=== PATIENT | male | born 1950 | race Caucasian/White ===

== ENCOUNTER 2024-03-02 13:50 | Outpatient (CLI) | payer MEDICARE, SELFPAY ==
--- NOTE | ~2024-03-02 | XR_ITS ---
Right Knee Technique: AP and lateral views were obtained. Clinical History: Pain Findings: No fracture or dislocation is seen. There is medial compartment narrowing with medial joint line osteophyte formation. Lateral patellofemoral compartments are intact. Soft tissues are unremark able. No joint effusion is seen. Impression: Advanced medial compartment degenerative change. Reviewed, dictated and finalized at location . Impression: Advanced medial compartment degenerative change.
--- NOTE | ~2024-03-02 | XR_ITS ---
Left Knee Technique: AP and lateral views were obtained. Clinical History: Pain Findings: No fracture or dislocation is seen. There is medial compartment narrowing with medial joint line osteophyte formation. There is minimal spurring of the lateral and patellofemoral compartments. Soft tissues are unremarkable. No joint effusion is seen. Impression: Advanced degenerative change of the medial compartment. Mild degenerative change of the lateral and p atellofemoral compartment. Reviewed, dictated and finalized at location M. Impression: Advanced degenerative change of the medial compartment. Mild degenerative richardson e of the lateral and patellofemoral compartment.
== END 2024-03-02 13:51 | disposition home or self-care (01) ==
PROVIDERS: PCP Nurse Practitioner Family; Visit Provider Nurse Practitioner Family
DX: M17.0 Bilateral primary osteoarthritis of knee (principal)
CPT/HCPCS: 73560

== ENCOUNTER 2025-01-16 11:42 | Emergency (ER) | payer MEDICARE, SELFPAY ==
--- OUTSIDE RECORDS SUMMARY | 2024-06-03 07:00 | XMS_ITS ---
Author Organization [facility] Address [address] [place] [address] Care Team Providers Care Auction Block Clerk Name Role Phone Julian Valencia Unavailable [phone] Medications Medication SIG (Take, Route, Frequency, Duration) Notes Start Date End Date Status Furosemide 40 MG TAKE 1 TABLET BY LUKE TH EVERY DAY; Duration: 90 Active Flomax 0.4 MG 1 capsule Orally Onc e a day; Duration: 90 day(s) 03/25/2024 12/20/2024 Active Calcitriol 0.25 MCG TAKE 1 CAPSULE BY MO UTH EVERY DAY FOR 90 DAYS; Duration: 90 Active Lasix 40 MG 1 tablet Orally twic e a day; Duration: 90 day(s) 04/03/2023 Active Tamsulosin HCl 0.4 MG TAKE 1 CAPSULE BY MOUTH EVERY DAY FOR 90 DAYS; Duration: 90 Active Vitamin D (Ergocalciferol) 1.25 MG (18108 UT) TAKE 1 CAPSULE BY MOUTH TWICE A WEEK; Duration: 90 Active Encounters Encounter Location Date Provider Diagnosis [place] [facility] 2043 [facility] 15 [place] [address] 06/03/2024 Julian Valencia Chronic kidney disea se, stage 2 (mild) N18.2 ; Essential (primary) hypertension I10 ; Renal osteodystrophy N25.0 ; Secondary hyperparathyroidism, not elsewhere classified E21.1 ; Lymphedema, not elsewhere classified I89.0 ; Hypothyroidism, unspecified E03.9 and Proteinuria, unspecified R80.9 Assessments Encounter Date Diagnosis (ICD Code) Assessment Notes Treatment Notes Treatment Clinical Notes Section Notes 06/03/2024 Chronic kidney disease, stage 2 (mild) (ICD-10 - N18.2) 06/03/2024 Essential (primary) hypertension (ICD-10 - I10) 06/03/2024 Renal osteodystrophy (ICD-10 - N25.0) 06/03/2024 Secondary hyperparathyroidism , not elsewhere classified (ICD-10 - E21.1) 06/03/2024 Lymphedema, not elsewhere classified (ICD-10 - I89.0) 06/03/2024 Hypothyroidism, unspecified (ICD-10 - E03.9) 06/03/2024 Proteinuria, unspecified (ICD-10 - R80.9) Plan Of Treatment Next Appt Details Provider Name:Julian Erik , 02/17/2025 02:00:00 PM, 2043 [facility] 15, [place], [address], Progress Notes * MARY DACOSTADOB:1950 (74 yo M)Acc No.[id number]:06/03/2024 Progress Notes Patient: MARY ORTIZ Provider: Oseas ALDRIDGE MD, F.A.C.P, F.A.S.N. :1950 A ge:73 Y S ex:Male Date:06/03/2024 Address:[address] [place] [address] Subjective: * Chief Complaints: * * Medical History: * Medications: T aking Vitamin D (Ergocalciferol) 1.25 MG (68110 UT) Capsule TAKE 1 CAPSULE BY MOUTH TWICE A WEEK , Taking Lasix 40 MG Tablet 1 tablet Orally twice a day , Taking Tamsulosin HCl 0.4 MG Capsule TAKE 1 CAPSULE BY MOUTH EVERY DAY FOR 90 DAYS , Taking Flomax 0.4 MG Capsule 1 capsule Orally Once a day , stop date 12/20/2024, Taking Calcitriol 0.25 MCG Capsule TAKE 1 CAPSULE BY MOUTH EVERY DAY FOR 90 DAYS , Taking Furosemide 40 MG Tablet TAKE 1 TABLET BY MOUTH EVERY DAY Objective: * Vitals: Assessment: * Assessment: 1. C hronic kidney disease, stage 2 (mild) - N18.2 (Primary) 2 . E ssential (primary) hypertension - I10 3 . R enal osteodystrophy - N25.0 4 . S econdary hyperparathyroidism, not elsewhere classified - E21.1 5 . L ymphedema, not elsewhere classified - I89.0 6 . H ypothyroidism, unspecified - E03.9 7 . P roteinuria, unspecified - R80.9 Plan: * Treatment: * Billing Information: * Visit Code: 48527 Office Visit, Est Pt., Level 4. * Procedure Codes: * Electronic signature of Zain Valencia MD on 01/16/2025 at 11:45 AM CDT Sign off status: Pending * Provider: sOeas ALDRIDGE MD, F.A.C.P, F.A.S.N. Date: 0 06/03/2024 Generated for Printing/Faxing/eTransmitting on: 0 01/16/2025 11:45 AM CDT
--- OUTSIDE RECORDS SUMMARY | 2024-07-29 08:30 | XMS_ITS ---
Author Organization [facility] Address [address] [facility] 61 [facility] [address] [place] [address] Care Team Providers Care Metal Bonding Assembler Name Role Phone Erik Julian Unavailable [phone] Problems Problem Type SNOMED Code ICD Code Onset Dates Problem Status W/U Status Risk Notes Problem Edema (05938433) Edema, unspecified (R60.9) Active confirmed Encounters Encounter Location Date Provider Diagnosis [place] [facility] 2043 [facility] 15 [place] [address] 07/29/2024 Julian Valencia Chronic kidney disea se, stage 2 (mild) N18.2 ; Essential (primary) hypertension I10 ; Hypothyroidism, unspecified E03.9 ; Hyperlipidemia, unspecified E78.5 ; Secondary hyperparathyroidism, not elsewhere classified E21.1 ; Renal osteodystrophy N25.0 ; Obesity, unspecified E66.9 ; Lymphedema, not elsewhere classified I89.0 and Edema, unspecified R60.9 Assessments Encounter Date Diagnosis (ICD Code) Assessment Notes Treatment Notes Treatment Clinical Notes Section Notes 07/29/2024 Chronic kidney disease, stage 2 (mild) (ICD-10 - N18.2) 07/29/2024 Essential (primary) hypertension (ICD-10 - I10) 07/29/2024 Hypothyroidism, unspecified (ICD-10 - E03.9) 07/29/2024 Hyperlipidemia, unspecified (ICD-10 - E78.5) 07/29/2024 Secondary hyperparathyroidism , not elsewhere classified (ICD-10 - E21.1) 07/29/2024 Renal osteodystrophy (ICD-10 - N25.0) 07/29/2024 Obesity, unspecified (ICD-10 - E66.9) 07/29/2024 Lymphedema, not elsewhere classified (ICD-10 - I89.0) 07/29/2024 Edema, unspecified (ICD-10 - R60.9) Plan Of Treatment Next Appt Details Provider Name:Julian Erik , 02/17/2025 02:00:00 PM, 2043 [facility], [address], [place], [address], Progress Notes * MARY DACOSTADOB:1950 (74 yo M)Acc No.[id number]:07/29/2024 Progress Notes Patient: MARY ORTIZ Provider: Oseas ALDRIDGE MD, F.A.C.P, F.A.S.N. :1950 A ge:73 Y S ex:Male Date:07/29/2024 Address:[facility] [place] [address] Subjective: * Chief Complaints: * * Medical History: Objective: * Vitals: Assessment: * Assessment: 1. C hronic kidney disease, stage 2 (mild) - N18.2 (Primary) 2 . E ssential (primary) hypertension - I10 3 . H ypothyroidism, unspecified - E03.9 ? 4 . H yperlipidemia, unspecified - E78.5 5 . S econdary hyperparathyroidism, not elsewhere classified - E21.1 6 . R enal osteodystrophy - N25.0 ? 7 . O besity, unspecified - E66.9 8 . L ymphedema, not elsewhere classified - I89.0 9 . E lorrie, unspecified - R60.9 Plan: * Treatment: * Billing Information: * Visit Code: 39355 Office Visit, Est Pt., Level 4. * Procedure Codes: * Electronic signature of Zain Valencia MD on 01/16/2025 at 11:44 AM CDT Sign off status: Pending * Provider: Oseas ALDRIDGE MD, F.A.C.P, F.A.S.N. Date: 0 07/29/2024 Generated for Printing/Faxing/eTransmitting on: 0 01/16/2025 11:44 AM CDT
--- OUTSIDE RECORDS SUMMARY | 2024-11-04 08:15 | XMS_ITS ---
Author Organization [facility] Address 1400 [facility] 61 [facility] [address] [place] [address] Care Team Providers Care Marketing Copywriter Name Role Phone Julian Valencia Unavailable [phone] Encounters Encounter Location Date Provider Diagnosis [place] [facility] 2043 [facility] 15 [place] [address] 11/04/2024 Julian Valencia Chronic kidney disea se, stage 2 (mild) N18.2 ; Essential (primary) hypertension I10 ; Hypothyroidism, unspecified E03.9 ; Hyperlipidemia, unspecified E78.5 ; Secondary hyperparathyroidism, not elsewhere classified E21.1 ; Renal osteodystrophy N25.0 ; Obesity, unspecified E66.9 ; Lymphedema, not elsewhere classified I89.0 and Edema, unspecified R60.9 Assessments Encounter Date Diagnosis (ICD Code) Assessment Notes Treatment Notes Treatment Clinical Notes Section Notes 11/04/2024 Chronic kidney disease, stage 2 (mild) (ICD-10 - N18.2) 11/04/2024 Essential (primary) hypertension (ICD-10 - I10) 11/04/2024 Hypothyroidism, unspecified (ICD-10 - E03.9) 11/04/2024 Hyperlipidemia, unspecified (ICD-10 - E78.5) 11/04/2024 Secondary hyperparathyroidism , not elsewhere classified (ICD-10 - E21.1) 11/04/2024 Renal osteodystrophy (ICD-10 - N25.0) 11/04/2024 Obesity, unspecified (ICD-10 - E66.9) 11/04/2024 Lymphedema, not elsewhere classified (ICD-10 - I89.0) 11/04/2024 Edema, unspecified (ICD-10 - R60.9) Plan Of Treatment Next Appt Details Provider Name:Julian Valencia , 02/17/2025 02:00:00 PM, 2043 [facility], [address], [place], [address], Progress Notes * MARY DACOSTADOB:1950 (74 yo M)Acc No.[id number]:11/04/2024 Progress Notes Patient: MARY ORTIZ Provider: Oseas ALDRIDGE MD, F.Pedro.C.P, F.A.S.N. :1950 A ge:73 Y S ex:Male Date:11/04/2024 Address:[address] [place] [address] [place] [place] Subjective: * Chief Complaints: * * Medical [...] Treatment: * Billing Information: * Visit Code: 82250 Office Visit, Est Pt., Level 4. * Procedure Codes: * Electronic signature of Zain Valencia MD on 01/16/2025 at 11:44 AM CDT Sign off status: Pending * Provider: Oseas ALDRIDGE MD, Soy.Pedro.C.P, F.A.S.N. Date: 11/04/2024 Generated for Printing/Faxing/eTransmitting on: 01/16/2025 11:44 AM CDT
--- OUTSIDE RECORDS SUMMARY | 2024-12-23 09:30 | XMS_ITS ---
Author Organization [facility] Address [address] [facility] 61 [facility] [address] [place] [address] Care Team Providers Care Monkey Trainer Name Role Phone Julian Valencia Unavailable [phone] Encounters Encounter Location Date Provider Diagnosis [place] [facility] 2043 [facility] 15 [place] [address] 12/23/2024 Julian Valencia Chronic kidney disea se, stage 2 (mild) N18.2 ; Essential (primary) hypertension I10 ; Hypothyroidism, unspecified E03.9 ; Hyperlipidemia, unspecified E78.5 ; Secondary hyperparathyroidism, not elsewhere classified E21.1 ; Renal osteodystrophy N25.0 ; Obesity, unspecified E66.9 ; Lymphedema, not elsewhere classified I89.0 and Edema, unspecified R60.9 Assessments Encounter Date Diagnosis (ICD Code) Assessment Notes Treatment Notes Treatment Clinical Notes Section Notes 12/23/2024 Chronic kidney disease, stage 2 (mild) (ICD-10 - N18.2) 12/23/2024 Essential (primary) hypertension (ICD-10 - I10) 12/23/2024 Hypothyroidism, unspecified (ICD-10 - E03.9) 12/23/2024 Hyperlipidemia, unspecified (ICD-10 - E78.5) 12/23/2024 Secondary hyperparathyroidism , not elsewhere classified (ICD-10 - E21.1) 12/23/2024 Renal osteodystrophy (ICD-10 - N25.0) 12/23/2024 Obesity, unspecified (ICD-10 - E66.9) 12/23/2024 Lymphedema, not elsewhere classified (ICD-10 - I89.0) 12/23/2024 Edema, unspecified (ICD-10 - R60.9) Plan Of Treatment Next Appt Details Provider Name:Julian Valencia , 02/17/2025 02:00:00 PM, 2043 [facility], [address], [place], [address], Progress Notes * MARY DACOSTADOB:1950 (74 yo M)Acc No.[id number]:12/23/2024 Progress Notes Patient: MARY ORTIZ Provider: Oseas ALDRIDGE MD, Soy.Pedro.Jeancarlos.P, F.A.S.N. :1950 A ge:73 Y S ex:Male Date:12/23/2024 Address:[address] [place] [address] , [place] Subjective: * Chief Complaints: Objective: Assessment: * Assessment: 1. C hronic kidney [...] E lorrie, unspecified - R60.9 Plan: * Billing Information: * Visit Code: 40853 Office Visit, Est Pt., Level 4. * Procedure Codes: * Electronic signature of Zain Valencia MD on 01/16/2025 at 11:44 AM CDT Sign off status: Pending * Provider: Oseas ALDRIDGE MD, F.Pedro.C.P, F.A.S.N. Date: 0 12/23/2024 Generated for Printing/Faxing/eTransmitting on: 0 01/16/2025 11:44 AM CDT
--- OUTSIDE RECORDS SUMMARY | 2024-12-30 10:30 | XMS_ITS ---
Author Organization [facility] Address [address] [place] [address] Care Team Providers Care Visualizer Name Role Phone Erik Julian Unavailable [phone] Encounters Encounter Location Date Provider Diagnosis [place] [facility] 2043 [facility] 15 [place] [address] 12/30/2024 Julian Valencia Plan Of Treatment Next Appt Details Provider Name:Julian Valencia , 02/17/2025 02:00:00 PM, [address] [place] [address], [place], [address], Progress Notes * MARY DACOSTADOB:1950 (74 yo M)Acc No.[id number]:12/30/2024 Progress Notes Patient: MARY ORTIZ Provider: Oseas ALDRIDGE MD, Soy.Pedro.C.P, F.A.S.N. :1950 A ge:74 Y S ex:Male Date:12/30/2024 Address:[facility] [place] [address] Subjective: * Chief Complaints: * * Medical History: Objective: * Vitals: Assessment: Plan: * Treatment: * Billing Information: * Visit Code: * Procedure Codes: * Electronic signature of Zain Valencia MD on 01/16/2025 at 11:44 AM CDT Sign off status: Pending * Provider: Oseas ALDRIDGE MD, Soy.Pedro.C.P, F.A.S.N. Date: 0 12/30/2024 Generated for Printing/Faxing/eTransmitting on: 01/16/2025 11:44 AM CDT
--- OUTSIDE RECORDS SUMMARY | 2025-01-16 11:44 | XMS_ITS | Patient Health Record ---
Author Organization [facility] Address [address] [place] [address] Care Team Providers Care Lemon Grower Name Role Phone Julian Valencia Unavailable [phone] Reason For Referral No Information Medications Medication SIG (Take, Route, Frequency, Duration) Notes Start Date End Date Status Furosemide 40 MG TAKE 1 TABLET BY LUKE TH EVERY DAY; Duration: 90 Active Lasix 40 MG 1 tablet Orally twic e a day; Duration: 90 day(s) 04/03/2023 08/01/2025 Active Vitamin D (Ergocalciferol) 1.25 MG (68206 UT) TAKE 1 CAPSULE BY MOUTH TWICE A WEEK; Duration: 90 Active Calcitriol 0.25 MCG TAKE 1 CAPSULE BY MO UTH EVERY DAY FOR 90 DAYS; Duration: 90 Active Tamsulosin HCl 0.4 MG TAKE 1 CAPSULE BY MOUTH EVERY DAY FOR 90 DAYS; Duration: 90 Active Problems Problem Type SNOMED Code ICD Code Onset Dates Problem Status W/U Status Risk Notes Problem Hypothyroidism (12248899) Hypothyroidism, unspecified (E03.9) Active confirmed Problem Secondary hyperparathyroidism (58299544) Secondary hyperparathyroid ism, not elsewhere classified (E21.1) Active confirmed Problem Obesity (909697554) Obesity, unspecified (E66.9) Active confirmed Problem Hyperlipidemia (38041424) Hyperlipidemia, unspecified (E78.5) Active confirmed Problem Essential hypertension (92108516) Essential (primary) hypertension (I10) Active confirmed Problem Lymphedema (979429098) Lymphedema, not elsewhere classified (I89.0) Active confirmed Problem Chronic kidney disease stage 2 (589538744) Chronic kidney disease, stage 2 (mild) (N18.2) Active confirmed Problem Renal osteodystrophy (64440128) Renal osteodystrophy (N25.0) Active confirmed Problem Edema (52142132) Edema, unspecified (R60.9) Active confirmed Encounters Encounter Location Date Provider Diagnosis [facility] 2043 [place] [address] 03/25/2024 Julian Valencia Chronic kidney disea se, stage 2 (mild) N18.2 ; Essential (primary) hypertension I10 ; Hypothyroidism, unspecified E03.9 ; Hyperlipidemia, unspecified E78.5 ; Secondary hyperparathyroidism, not elsewhere classified E21.1 ; Renal osteodystrophy N25.0 ; Obesity, unspecified E66.9 and Lymphedema, not elsewhere classified I89.0 [facility] [address] [place] [address] 06/03/2024 Julian Valencia Chronic kidney disea se, stage 2 (mild) N18.2 ; Essential (primary) hypertension I10 ; Renal osteodystrophy N25.0 ; Secondary hyperparathyroidism, not elsewhere classified E21.1 ; Lymphedema, not elsewhere classified I89.0 ; Hypothyroidism, unspecified E03.9 and Proteinuria, unspecified R80.9 [facility] [address] [place] [address] 07/29/2024 Julian Valencia Chronic kidney disea se, stage 2 (mild) N18.2 ; Essential (primary) hypertension I10 ; Hypothyroidism, unspecified E03.9 ; Hyperlipidemia, unspecified E78.5 ; Secondary hyperparathyroidism, not elsewhere classified E21.1 ; Renal osteodystrophy N25.0 ; Obesity, unspecified E66.9 ; Lymphedema, not elsewhere classified I89.0 and Edema, unspecified R60.9 [facility] [address] [place] [address] 11/04/2024 Julian Valencia Chronic kidney disea se, stage 2 (mild) N18.2 ; Essential (primary) hypertension I10 ; Hypothyroidism, unspecified E03.9 ; Hyperlipidemia, unspecified E78.5 ; Secondary hyperparathyroidism, not elsewhere classified E21.1 ; Renal osteodystrophy N25.0 ; Obesity, unspecified E66.9 ; Lymphedema, not elsewhere classified I89.0 and Edema, unspecified R60.9 [facility] [address] [place] [address] 12/23/2024 Julian Valencia Chronic kidney disea se, stage 2 (mild) N18.2 ; Essential (primary) hypertension I10 ; Hypothyroidism, unspecified E03.9 ; Hyperlipidemia, unspecified E78.5 ; Secondary hyperparathyroidism, not elsewhere classified E21.1 ; Renal osteodystrophy N25.0 ; Obesity, unspecified E66.9 ; Lymphedema, not elsewhere classified I89.0 and Edema, unspecified R60.9 [place] [facility] 2043 [facility] 15 [place] [address] 04/18/2024 Julian [facility] [address] [address] 04/18/2024 Julian [facility] [address] [address] 04/20/2024 Julian [facility] [address] [address] 05/30/2024 Julian Valencia [facility] [place] [facility] [address] [place] [address] 11/04/2024 Julian Valencia [place] [facility] [address] [address] 02/23/2024 Julian [facility] [address] [address] 02/25/2024 Julian [facility] [address] [address] 03/25/2024 Julian Valencia Assessments Encounter Date Diagnosis (ICD Code) Assessment Notes Treatment Notes Treatment Clinical Notes Section Notes 03/25/2024 Chronic kidney disease, stage 2 (mild) (ICD-10 - N18.2) 06/03/2024 Essential (primary) hypertension (ICD-10 - I10) 06/03/2024 Chronic kidney disease, stage 2 (mild) (ICD-10 - N18.2) 07/29/2024 Chronic kidney disease, stage 2 (mild) (ICD-10 - N18.2) 11/04/2024 Chronic kidney disease, stage 2 (mild) (ICD-10 - N18.2) 12/23/2024 Chronic kidney disease, stage 2 (mild) (ICD-10 - N18.2) 11/04/2024 Essential (primary) hypertension (ICD-10 - I10) 12/23/2024 Essential (primary) hypertension (ICD-10 - I10) 07/29/2024 Essential (primary) hypertension (ICD-10 - I10) 06/03/2024 Renal osteodystrophy (ICD-10 - N25.0) 03/25/2024 Essential (primary) hypertension (ICD-10 - I10) 03/25/2024 Hypothyroidism, unspecified (ICD-10 - E03.9) 07/29/2024 Hypothyroidism, unspecified (ICD-10 - E03.9) 06/03/2024 Secondary hyperparathyroidism , not elsewhere classified (ICD-10 - E21.1) 11/04/2024 Hypothyroidism, unspecified (ICD-10 - E03.9) 12/23/2024 Hypothyroidism, unspecified (ICD-10 - E03.9) 12/23/2024 Hyperlipidemia, unspecified (ICD-10 - E78.5) 07/29/2024 Hyperlipidemia, unspecified (ICD-10 - E78.5) 11/04/2024 Hyperlipidemia, unspecified (ICD-10 - E78.5) 06/03/2024 Lymphedema, not elsewhere classified (ICD-10 - I89.0) 03/25/2024 Hyperlipidemia, unspecified (ICD-10 - E78.5) 03/25/2024 Secondary hyperparathyroidism , not elsewhere classified (ICD-10 - E21.1) 06/03/2024 Hypothyroidism, unspecified (ICD-10 - E03.9) 07/29/2024 Secondary hyperparathyroidism , not elsewhere classified (ICD-10 - E21.1) 11/04/2024 Secondary hyperparathyroidism , not elsewhere classified (ICD-10 - E21.1) 12/23/2024 Secondary hyperparathyroidism , not elsewhere classified (ICD-10 - E21.1) 11/04/2024 Renal osteodystrophy (ICD-10 - N25.0) 12/23/2024 Renal osteodystrophy (ICD-10 - N25.0) 07/29/2024 Renal osteodystrophy (ICD-10 - N25.0) 06/03/2024 Proteinuria, unspecified (ICD-10 - R80.9) 03/25/2024 Renal osteodystrophy (ICD-10 - N25.0) 03/25/2024 Obesity, unspecified (ICD-10 - E66.9) 07/29/2024 Obesity, unspecified (ICD-10 - E66.9) 11/04/2024 Obesity, unspecified (ICD-10 - E66.9) 12/23/2024 Obesity, unspecified (ICD-10 - E66.9) 12/23/2024 Lymphedema, not elsewhere classified (ICD-10 - I89.0) 11/04/2024 Lymphedema, not elsewhere classified (ICD-10 - I89.0) 07/29/2024 Lymphedema, not elsewhere classified (ICD-10 - I89.0) 03/25/2024 Lymphedema, not elsewhere classified (ICD-10 - I89.0) 07/29/2024 Edema, unspecified (ICD-10 - R60.9) 11/04/2024 Edema, unspecified (ICD-10 - R60.9) 12/23/2024 Edema, unspecified (ICD-10 - R60.9) Plan Of Treatment Next Appt Details Provider Name:Julian Valencia , 02/17/2025 02:00:00 PM, [address], [facility], [place], [address],
--- OUTSIDE RECORDS SUMMARY | 2025-01-16 11:44 | XMS_ITS | Clinical Summary ---
Author Organization [facility] Address [address] [place] [id number] Care Team Providers Care Infrastructure Consultant Name Role Phone Teo Jeff MD Primary Care Provider Social History Tobacco Use Types Packs/Day Years Used Date Smoking Tobacco: Never Assessed Sex and Gender Information Value Date Recorded Sex Assigned at Not on file Legal Sex Male 12:39 PM [employer] Gender Identity Not on file Sexual Orientation Not on file Plan of Treatment Health Maintenance Due Date Last Done Comments Hepatitis C Virus (HCV) Screening 1950 TdaP Immunization 1950 Cologuard 12/27/1996 Colonoscopy 12/27/1996 Colorectal Cancer Screening 12/27/1996 Immunochemical Fecal Occult Blood 12/27/1996 SARS-COV-2 Immunization ( season) 2024 03/25/2022, 03/08/2021, 08/25/2020 Influenza Immunization (#1) 01/16/202505/18, 02/24/2021, 02/22/2020, Additional history exists DTaP/Tdap/Td Immunization Discontinued 01/18/2020 Pneumococcal Immunization (50+ years) Completed 02/06/2022, 02/22/2020 Respiratory Syncytial Virus (RSV) Immunization (Adult) Completed 06/21/2023 Zoster Immunization Completed 08/15/2023, Hepatitis B Immunization Aged Out No longer eligible based on patient's age to complete this topic Human Papillomavirus (HPV) Immunization Aged Out No longer eligible based on patient's age to complete this topic Meningococcal Immunization (ACWY) Aged Out No longer eligible based on patient's age to complete this topic Rotavirus Immunization Aged Out No lo nger eligible based on patient's age to complete this topic Insurance MEDICARE C [facility] Care Teams Infrastructure Consultant Relationship Specialty Start Date End Date Teo Jeff MD [address] [place] [address] PCP - General Internal Medicine 09/17/23
--- OUTSIDE RECORDS SUMMARY | 2025-01-16 11:45 | XMS_ITS | Clinical Summary ---
Author Organization [facility] Address [address] [place] [address] Care Team Providers Care Merchant Mill Utility Worker Name Role Phone Unavailable Primary Care Provider Unavailabl e Social History Tobacco Use Types Packs/Day Years Used Date Smoking Tobacco: Never Assessed Sex and Gender Information Value Date Recorded Sex Assigned at Not on file Legal Sex Male 6:48 PM CDT Gender Identity Not on file Sexual Orientation Not on file Plan of Treatment Health Maintenance Due Date Last Done Comments Colorectal Cancer Screening Colonoscopy (10 Years) 1950 Hepatitis C 12/27/1969 DTaP, Tdap and Td Vaccines ( 1 - Tdap) 12/27/1970 Pneumococcal Vaccine: 50+ Ye ars (1 of 1 - PCV) 12/27/2001 Zoster Vaccines (1 of 2) 12/27/2001 COVID-19 Vaccine ( - 2023-2 5 season) 2024 RSV Immunization or 60+ Years (1 - 1-dose 75+ series) 12/27/2026 Meningococcal B Vaccine Aged Out No l onger eligible based on patient's age to complete this topic Meningococcal Vaccine Aged Out No quiana josias eligible based on patient's age to complete this topic RSV Immunizations Under 20 Months Aged Out No longer eligible based on patient's age to complete this topic
[2025-01-16 11:59] VITALS: BP 128/72; PULSE 62; RESP 17; TEMP 36.2; O2SAT 100
[2025-01-16] MEDS: MUPIROCIN 2% OINT 22 GM TUBE 1 APPLIC TOPICAL (12:17)
--- NOTE | 2025-01-16 12:21 | ED.GENADULT ---
HPI - General Adult General Chief complaint: Wound/Laceration Stated complaint: wound to back of the left leg Time Seen by Provider: 01/16/25 11:45 History of Present Illness HPI narrative: 74-year-old male presents emergency department for evaluation for a wound to the back of his leg. Patient states he had a blister on the back of his leg for the last few days but as he was taking off his compression stockings the blister ruptured. Related Data Home Medications ?Medication ?Instructions ?Recorded ?Confirmed ?Last Taken ?Type calcitriol 0.25 mcg capsule mcg 01/16/25 01/16/25 History clopidogrel 75 mg tablet mg 01/16/25 01/16/25 History furosemide 40 mg tablet mg BID 01/16/25 01/16/25 History levothyroxine 200 mcg tablet mcg 01/16/25 01/16/25 History losartan 100 mg tablet mg 01/16/25 01/16/25 History metformin 500 mg tablet,extended mg PO 01/16/25 01/16/25 History release 24 hr metoprolol tartrate 50 mg tablet mg 01/16/25 01/16/25 History tamsulosin 0.4 mg capsule mg PO BID 01/16/25 01/16/25 History Allergies Allergy/AdvReac Type Severity Reaction Status Date / Time lisinopril AdvReac Mild Cough Verified 01/16/25 12:05 Review of Systems Review of Systems: All systems reviewed & are unremarkable except as noted in HPI and below Exam Narrative: APPEARANCE: Well appearing, no pain, no distress, well-nourished. HEAD: normocephalic, atraumatic. EYES: PERRLA/EOMI, conjunctivae clear. NOSE: Normal no drainage EARS:TMS clear with good light reflex. THROAT: Pharynx clear, no exudate. NECK: Supple. No adenopathy, no masses. RESPIRATORY: Airway patent, respirations nonlabored. Clear to auscultation bilaterally, no rales, rhonchi, wheezing. CARDIOVASCULAR: Regular rate and rhythm without murmurs rubs or gallops. ABDOMINAL: Soft, nontender, nondistended, normal bowel sounds MUSCULOSKELETAL: Moves all extremities. Strength/ROM intact, No edema, No calf tenderness. NEURO: Alert. Cranial nerves II through XII intact. Good gait. Good coordination SKIN: 3 cm diameter open wound to back of left calf Course Vital Signs Vital signs: Vital Signs Temperature 97.2 F L 01/16/25 11:59 Pulse Rate 62 01/16/25 11:59 Respiratory Rate 17 01/16/25 11:59 Blood Pressure 128/72 01/16/25 11:59 Pulse Oximetry 100 01/16/25 11:59 Oxygen Delivery Room Air 01/16/25 11:59 Temperature 97.2 F L 01/16/25 11:59 Pulse Rate 62 01/16/25 11:59 Respiratory Rate 17 01/16/25 11:59 Blood Pressure 128/72 01/16/25 11:59 Pulse Oximetry 100 01/16/25 11:59 Oxygen Delivery Room Air 01/16/25 11:59 Medical Decision Making MDM Narrative Medical decision making narrative: 74-year-old male present to the emergency department for evaluation for an open blister on his posterior calf. Patient was provided topical antibiotic ointment and wound care. Patient was encouraged close follow-up with his primary care physician close follow-up with Wound Care. All questions concerns were addressed patient was comfortable plan for discharge and close follow-up. Differential Diagnosis Differential Diagnosis: Cellulitis, skin avulsion, edema Vital Signs Vital Signs: Vital Signs Temperature 97.2 F L 01/16/25 11:59 Pulse Rate 62 01/16/25 11:59 Respiratory Rate 17 01/16/25 11:59 Blood Pressure 128/72 01/16/25 11:59 Pulse Oximetry 01/16/25 11:59 Oxygen Delivery Room Air 01/16/25 11:59 Temperature 97.2 F L 01/16/25 11:59 Pulse Rate 62 01/16/25 11:59 Respiratory Rate 01/16/25 11:59 Blood Pressure 128/72 01/16/25 11:59 Pulse Oximetry 01/16/25 11:59 Oxygen Delivery Room Air 01/16/25 11:59 Lab Data Lab results reviewed: Yes I reviewed the patient's lab results. Discharge Plan Discharge Clinical Impression: Avulsion of skin Patient Disposition: Home Condition: Stable Instructions: Antibiotic Form, Chronic Wounds (ED) Additional Instructions: Antibiotic ointment as directed. Wound care as directed. Have close follow-up with your primary care physician for a wound care follow-up. If you have any worsening symptoms then please call or return to the emergency department. Patient Language: [place] Prescriptions: New mupirocin [Centany] 2 % ointment 1 applic topical BID Qty: 22 0RF No Action furosemide 40 mg tablet BID clopidogrel 75 mg tablet tamsulosin 0.4 mg capsule PO BID metoprolol tartrate 50 mg tablet levothyroxine 200 mcg tablet losartan 100 mg tablet metformin 500 mg tablet extended release 24 hr PO calcitriol 0.25 mcg capsule Follow-up/Referrals: Dyllan,Linda, INSEAM TRIMMING MACHINE OPERATOR-C [Non-Staff]
--- OUTSIDE RECORDS SUMMARY | 2025-01-16 12:46 | XMS_ITS | Clinical Summary ---
Author Organization [facility] Address [address] [place] [address] Care Team Providers Care Tag Maker Name Role Phone Vannessa Jeff MD Primary Care Provide r Miscellaneous, Not In File Unavailable Unava ilable Shin Rodas MD Unavailable Allergies Active Allergy Reactions Criticality Noted Date Comments Green Fitch Rash Medium 10/23/2022 Lisinopril Cough Low 10/08/2019 Medications clopidogreL (PLAVIX) 75 mg tablet daily Active atorvastatin (LIPITOR) 80 mg tablet Take 1 tablet (80 mg total) by mouth daily 3 Active metoprolol tartrate (LOPRESSOR) 50 mg immediate release tablet Take 1 tablet (50 mg total) by mouth 2 (two) times a day 3 Active levothyroxine (SYNTHROID) 175 mcg tablet Take 1 tablet (175 mcg total) by mouth welder apprentice arc before breakfast Active furosemide (LASIX) 40 mg tablet Take 1 tablet (40 mg total) by mouth daily 3 Active losartan (COZAAR) 50 mg tablet Take 1 tablet (50 mg total) by mouth daily 30 tablet 3 Active polyethylene glycol (MIRALAX) 17 gram packetIndicatio ns:constipation Take 1 packet (17 g total) by mouth daily 30 packet 3 Active psyllium, aspartame, SF (METAMUCIL SF) 3.4 gram packet Take 1 packet by mouth 3 (three) times a day 90 packet 3 Active senna-docusate (PERICOLACE) 8.6-50 mg Take 2 tablets by mouth 2 (two) times a day Hold if having diarrhea. Resume if no bowel movement in 2 days. 120 tablet 3 Active oxygenIndicatio ns:Dyspnea Administer 3 L/min into each nostril continuously. Indications: trouble breathing Active Active Problems Problem Noted Date Diagnosed Date Stasis dermatitis of both legs with edema and wh eeping 10/19/2022 Chronic respiratory failure 10/19/2022 Chronic constipation 10/19/2022 Bandemia 10/19/2022 Hyperkalemia 10/19/2022 Venous stasis ulcer of left lower leg with edema of left lower leg 07/23/2022 10/19/2022 Cellulitis and abscess of left lower extremity 0 01/07/2020 Chronic CHF 01/07/2020 Primary hypertension 01/07/2020 Coronary artery disease invo lving cantwell coronary artery of cantwell heart without angina pectoris 01/07/2020 Dyslipidemia 01/07/2020 Hypothyroidism 01/07/2020 CKD (chronic kidney disease) 01/07/2020 Edema 10/08/2019 Cellulitis of lower extremity 10/08/2019 Chronic skin ulcer 10/08/2019 Sepsis 10/08/2019 Bloody diarrhea 10/08/2019 Creatinine elevation 10/08/2019 Acquired hypothyroidism 10/08/2019 Osteoarthritis of knee 01/24/2013 Pain in extremity 01/07/2013 Maggot infestation Resolved Problems Problem Noted Date Diagnosed Date Resolved Date Cellulitis of lower extremit y, unspecified laterality 10/18/2022 10/19/2022 Surgical History Surgery Date Site/Laterality Comments CORONARY STENT PLACEMENT 05/18/2014 - 05/17/2015 x4 Medical History Medical History Date Comments Hypertension CHF (congestive heart failure) (HCC) Coronary artery disease Arthritis Renal disorder Thyroid disease Sleep apnea Prostate cancer (HCC) Chronic respiratory failure Chronic constipation Family History Medical History Relation Name Comments Cancer Father Relation Name Status Comments Father Social History Tobacco Use Types Packs/Day Years Used Date Smoking Tobacco: Never Smokeless Tobacco: Never Alcohol Use Standard Drinks/Week Comments Never 0 (1 standard drink = 0.6 oz pur e alcohol) OASIS D0700: Social Isolation Answer Da te Recorded Frequency of experiencing loneliness or isolatio n Never 01/02/2023 OASIS A1250: Transportation Answer Date Recorded Lack of Transportation (Medical) No 11/04/2022 Lack of Transportation (Non-Medical) No 11/04/2022 Patient Unable or Declines to Respond No 11/04/2022 OASIS B1300: Health Literacy Answer Jaime e Recorded Frequency of needing help to read materials from doctor or pharmacy Never 11/04/2022 Social Connection and Isolation Panel Answer Date Recorded In a typical week, how many times do you talk on the phone with family, friends, or neighbors? More than three times a week 10/20/2022 How often do you get togethe r with friends or relatives? More than three times a week 10/20/2022 How often do you attend chur ch or shinto services? Never 10/20/2022 Do you belong to any clubs o r organizations such as denominational groups, unions, fraternal or athletic groups, or school groups? No 10/20/2022 How often do you attend meet ings of the clubs or organizations you belong to? Never 10/20/2022 Are you , , di vorced, , never , or living with a partner? 10/20/2022 AUDIT-C Answer Date Recorded Q1: How often do you have a drink containing alc ohol? Never 10/08/2019 Average Number of Drinks Not on file 020 Frequency of Binge Drinking Not on file 09/16 Overall Financial Resource Strain (CARDIA) Answe r Date Recorded How hard is it for you to pa y for the very basics like food, housing, medical care, and heating? Not hard at all 10/20/2022 Hunger Vital Sign Answer Date Recorded Within the past 12 months, y ou worried that your food would run out before you got the money to buy more. Never true 10/21/19 Within the past 12 months, t he food you bought just didn't last and you didn't have money to get more. Never true 10/20/2022 PRAPARE - Transportation Answer Date Re corded In the past 12 months, has l ack of transportation kept you from medical appointments or from getting medications? No 09/2022 In the past 12 months, has l ack of transportation kept you from meetings, work, or from getting things needed for daily living? No 10/20/2022 Housing Stability Vital Sign Answer Jaime e Recorded In the last 12 months, was t here a time when you were not able to pay the mortgage or rent on time? No 10/20/2022 In the last 12 months, how many places have you lived? 1 10/20/2022 In the last 12 months, was t here a time when you did not have a steady place to sleep or slept in a halfway (including now)? 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 Gender Identity Not on file Sexual Orientation Not on file Obstetrics History Last Filed Vital Signs Vital Sign Reading Time Taken Comments Blood Pressure 118/70 01/26/2023 11:38 AM CDT Pulse 58 01/26/2023 11:38 AM CDT Temperature 36.7 C (98.1 F) 01/26/2023 11:38 AM CDT Respiratory Rate 18 01/26/2023 11:38 AM CDT Oxygen Saturation 98% 01/26/2023 11:38 AM CDT Inhaled Oxygen Concentration - - Weight 165.1 kg (364 lb) 10/23/2022 8:00 AM CDT Height 180.3 cm (5' 11) 10/23/2022 8:00 AM CDT Body Mass Index 50.77 10/23/2022 8:00 AM CDT Plan of Treatment Health Maintenance Due Date Last Done Comments Colon Cancer Screening-Colonoscopy 1950 Depression Screening 1950 Hepatitis C Screening 1950 Hepatitis B Screening 12/27/1969 Zoster Vaccine (1 of 2) 12/27/2001 Well Visit 65+ 12/27/2016 Fall Risk Assessment 10/25/2023 10/24/2022 Influenza Vaccine (#1) 2025 0, 08/17/2019, 08/16/2019 DTaP/Tdap/Td Vaccine (2 - Tdap) 01/17/2030 0 Pneumococcal vaccine 65+ Completed 02/06/2022, 11/2019 Abdominal Aortic Aneurysm (A AA) Screen Completed 10/23/2022 Procedures Procedure Name Priority Date/Time Associated Diagnosis Comments CT ABDOMEN PELVIS WO CONTRAST IP Routine 10/23/2022 3:55 PM CDT from Last 3 Months or Most Recently Relevant to Health Maintenance Results * CT Abdomen Pelvis WO Contrast (10/23/2022 3:55 PM CDT) Anatomical Region Laterality Modality Body N/A Computed Tomogra phy 10/23/2022 4:17 PM CDT Impressions 10/23/2022 4:17 PM CDT . Redundant distended left hemicolon probably ileus or pseudoobstruction with moderate fecal impaction. No evidence of small bowel obstruction. Distended gallbladder. Correlate clinically and consider ultrasound if indicated. Nonobstructing left nephrolithiasis. Enlarged though nonspecific external iliac and inguinal nodes, query reactive but correlate clinically. Middle lobe atelectasis with bibasal subsegmental atelectasis. Partial imaged coronary artery calcification. Electronically signed by: Elodia Queen M.D. Narrative 10/23/2022 4:17 PM CDT EXAM: CT ABDOMEN AND PELVIS WITHOUT CONTRAST: Date:10/23/2022 3:45 PM HISTORY:Bowel obstruction high-grade suspected TECHNIQUE: CT of the abdomen/pelvis was performed without intravenous contrast medium utilizing standard protocol and reconstructed into 3 mm axial, coronal, and sagittal images utilizing soft tissue and bone filters. The lack of intravenous contrast medium limits the evaluation for focal visceral lesions and intravascular pathology. COMPARISON: CT abdomen pelvis 06/29/2008. FINDINGS: The sensitivity for detection of visceral lesions is decreased in the absence of intravenous contrast. Partial atelectatic middle lobe and bibasilar subsegmental atelectasis is seen. There is multivessel partial imaged moderate coronary artery calcification. Unenhanced appearance the liver, spleen, and adrenals is unremarkable. Partial fatty-replaced pancreas especially head and uncinate is seen. Gallbladder distention is present No biliary distention noted. . A 2 mm nonobstructing left renal calculus is present. No right hydronephrosis or nephrolithiasis is seen. Moderate to markedly calcified nonaneurysmal aorta is seen with moderate SMA calcified plaque. There are bilateral common iliac venous stents. Nondistended stomach noted.. Partial oral contrast opacified small bowel is seen extending to the distal ileum without evidence for obstruction.The appendix is unremarkable.. Redundant partial gas-filled mild distended left hemicolon measuring up to 7 cm in diameter at the proximal descending level is seen with retained debris and moderate sigmoid impaction. There is no pneumoperitoneum or ascites. Right ventral pelvic subcutaneous venous gas droplets is seen probably injection site related. Nondistended bladder is seen. The prostate is not enlarged.. There are retroperitoneal periaortic and paracaval nodes up to 8 mm short axis now seen. Bilateral enlarged external iliac nodes are present measuring 16 mm short axis on the right and left. There are bilateral enlarged inguinal nodes up to 2 cm short axis on the left and 1.9 seen on the right. Moderate to marked narrowed vacuum disc with endplate osteophyte is seen at L4-5 and L5-S1. Procedure Note Elodia Queen MD - 10/23/2022 EXAM: CT ABDOMEN AND PELVIS WITHOUT CONTRAST: Date:10/23/2022 3:45 PM HISTORY:Bowel obstruction high-grade suspected TECHNIQUE: CT of the abdomen/pelvis was performed without intravenous contrast medium utilizing standard protocol and reconstructed into 3 mm axial, coronal, and sagittal images utilizing soft tissue and bone filters. The lack of intravenous contrast medium limits the evaluation for focal visceral lesions and intravascular pathology. COMPARISON: CT abdomen pelvis 06/29/2008. FINDINGS: The sensitivity for detection of visceral lesions is decreased in the absence of intravenous contrast. Partial atelectatic middle lobe and bibasilar subsegmental atelectasis is seen. There is multivessel partial imaged moderate coronary artery calcification. Unenhanced appearance the liver, spleen, and adrenals is unremarkable. Partial fatty-replaced pancreas especially head and uncinate is seen. Gallbladder distention is present No biliary distention noted. . A 2 mm nonobstructing left renal calculus is present. No right hydronephrosis or nephrolithiasis is seen. Moderate to markedly calcified nonaneurysmal aorta is seen with moderate SMA calcified plaque. There are bilateral common iliac venous stents. Nondistended stomach noted.. Partial oral contrast opacified small bowel is seen extending to the distal ileum without evidence for obstruction.The appendix is unremarkable.. Redundant partial gas-filled mild distended left hemicolon measuring up to 7 cm in diameter at the proximal descending level is seen with retained debris and moderate sigmoid impaction. There is no pneumoperitoneum or ascites. Right ventral pelvic subcutaneous venous gas droplets is seen probably injection site related. Nondistended bladder is seen. The prostate is not enlarged.. There are retroperitoneal periaortic and paracaval nodes up to 8 mm short axis now seen. Bilateral enlarged external iliac nodes are present measuring 16 mm short axis on the right and left. There are bilateral enlarged inguinal nodes up to 2 cm short axis on the left and 1.9 seen on the right. Moderate to marked narrowed vacuum disc with endplate osteophyte is seen at L4-5 and L5-S1. IMPRESSION: . Redundant distended left hemicolon probably ileus or pseudoobstruction with moderate fecal impaction. No evidence of small bowel obstruction. Distended gallbladder. Correlate clinically and consider ultrasound if indicated. Nonobstructing left nephrolithiasis. Enlarged though nonspecific external iliac and inguinal nodes, query reactive but correlate clinically. Middle lobe atelectasis with bibasal subsegmental atelectasis. Partial imaged coronary artery calcification. Electronically signed by: Elodia Queen M.D. [facility] [facility] CT PROCEDURES Final Result from Last 3 Months or Most Recently Relevant to Health Maintenance Insurance MEDICARE [facility] Address: [address] [address] [place] [address] [facility] MEDICARE ADVANTAGE MEDICARE [facility] MEDICARE ADVANTAGE [facility] Address: [facility] [address] [place] [address] Advance Directives For more information, please contact: [phone] * Full Code (Latest Code Status on File) Date Activated Date Inactivated Comments 10/18/2022 11:28 PM 10/24/2022 5:40 PM * Full Code Date Activated Date Inactivated Comments 01/07/2020 6:26 AM 01/08/2020 9:34 PM * Full Code Date Activated Date Inactivated Comments 10/08/2019 6:59 PM 10/12/2019 5:53 PM * Full Code Date Activated Date Inactivated Comments 10/08/2019 6:56 PM 10/08/2019 6:59 PM Care Teams Tag Maker Relationship Specialty Start Date End Date Vannessa Jeff MD [address] [facility] [address] [place] [address] PCP - General Internal Medicine 10/20/22 Miscellaneous, Not In File 10/24/22 [place] [address] [facility] [address] [place] [address] Consulting Physician Gastroenterology 10/24/22
--- OUTSIDE RECORDS SUMMARY | 2025-01-16 12:46 | XMS_ITS | Clinical Summary ---
Author Organization [facility] Address [address] [place] [address] Care Team Providers Care Order Worker Name Role Phone Unavailable Primary Care [...]
--- OUTSIDE RECORDS SUMMARY | 2025-01-16 12:46 | XMS_ITS | Clinical Summary ---
Author Organization 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
== END 2025-01-16 12:50 | disposition home or self-care (01) ==
PROVIDERS: Emergency Provider Emergency Medicine; PCP Internal Medicine
DX: S81.802A Unspecified open wound, left lower leg, initial encounter (principal); X58.XXXA Exposure to other specified factors, initial encounter; Z79.84 Long term (current) use of oral hypoglycemic drugs
CPT/HCPCS: 99283; A9270